=== PATIENT | male | born 1985 | race Caucasian/White ===

== ENCOUNTER 2018-10-26 16:15 | Inpatient (IN) | payer BC ==
[~2018-10-26] VITALS: Ht 182.9 cm; Wt 118.2 kg
[2018-10-26] MEDS ORDERED: normal saline 1000ML IV soln IVB ONE (16:30)
[2018-10-26] MEDS ORDERED: ondansetron/PF 4mg/2ml inj IV ONE (17:00)
[2018-10-26 17:03] LABS: BASOPHILS % (AUTO) 0.1 % (0-1); EOSINOPHILS % (AUTO) 0.6 % (0-6); HEMATOCRIT 48.3 % (42.0-52.0); HEMOGLOBIN 16.4 g/dl (14.0-17.9); LYMPHOCYTES # (AUTO) 0.5 X10'3 (1.1-4.8); LYMPHOCYTES % (AUTO) 7.1 % (21-51); MEAN CORPUSCULAR HEMOGLOBIN 30.3 PG (27.0-31.0); MEAN CORPUSCULAR HGB CONC 33.9 % (33.0-36.5); MEAN CORPUSCULAR VOLUME 89.4 FL (78-98); MEAN PLATELET VOLUME 9.1 FL (7.4-10.4); MONOCYTES # (AUTO) 0.5 X10'3 (0-0.9); MONOCYTES % (AUTO) 6.5 % (2-12); NEUTROPHILS # (AUTO) 6.5 X10'3 (1.8-7.7); NEUTROPHILS % (AUTO) 85.7 % (42-75); PLATELET COUNT 232 X10'3 (140-440); RED CELL DISTRIBUTION WIDTH 13.4 % (11.5-14.5); WHITE BLOOD COUNT 7.6 X10'3 (4.5-11.0)
[2018-10-26 17:13] LABS: ALANINE AMINOTRANSFERASE 494 U/L (12-78); ALKALINE PHOSPHATASE 126 IU/L (46-116); ANION GAP 12 (8-16); ASPARTATE AMINO TRANSFERASE 184 U/L (10-37); BILIRUBIN,TOTAL 9.3 MG/DL (0.1-1.0); BLOOD UREA NITROGEN 12 MG/DL (7-18); BUN/CREATININE RATIO 14.6 (5.4-32.0); CALCIUM 8.9 MG/DL (8.5-10.1); CHLORIDE 102 MMOL/L (99-107); CREATININE 0.82 MG/DL (0.60-1.10); GLUCOSE 105 MG/DL (70-104); SODIUM 140 MMOL/L (135-145); TOTAL CARBON DIOXIDE 25.8 MMOL/L (24-32); eGFR > 90 ML/MIN
[2018-10-26 17:18] LABS: ALBUMIN/GLOBULIN RATIO 1.1 (1.1-1.5); TOTAL PROTEIN 7.5 G/DL (6.4-8.2)
[2018-10-26] MEDS: morphine 4 MG/ML inj SYRINge IV PRN ×4 (17:30→23:07)
[2018-10-26 17:35] LABS: LIPASE 12029 U/L (73-393)
[2018-10-26] MEDS ORDERED: normal saline 1000ml 1,000 ML IV ONE (18:07)
[2018-10-26] MEDS ORDERED: mag hydrox/Alum hydrox/simeth 30ml oral suspension PO PRN (20:30)
[2018-10-26] MEDS ORDERED: haloperidol 5mg tablet PO PRN (20:30)
[2018-10-26] MEDS ORDERED: metoclopramide 5 mg/ml inj IV PRN (20:30)
[2018-10-26] MEDS ORDERED: bisacodyl 10mg suppository rectal RC PRN (20:30)
[2018-10-26] MEDS ORDERED: acetaminophen 325mg tablet PO PRN (20:30)
[2018-10-26] MEDS ORDERED: dextrose 50%-water 50ml dispensing syringe IV PRN (20:30)
[2018-10-26] MEDS ORDERED: HYDROmorphone 1 mg/ml syringe IV PRN (20:30)
[2018-10-26] MEDS ORDERED: magnesium hydroxide 30ml (MOM) UD suspension PO PRN (20:30)
[2018-10-26] MEDS ORDERED: thiamine 100mg/ml 2ml inj. IV ONE (20:30)
[2018-10-26] MEDS ORDERED: LORazepam 2 mg/ml vial IV PRN (20:30)
[2018-10-26] MEDS ORDERED: morphine 2 MG/ML inj. syringe IV PRN (20:30)
[2018-10-26] MEDS ORDERED: HYDROcodone/acetaminophen 10/325mg tab PO PRN (20:30)
[2018-10-26] MEDS ORDERED: haloperidol lactate 5mg/ml inj IM PRN (20:30)
[2018-10-26] MEDS ORDERED: acetaminophen 650mg rectal suppository RC PRN (20:30)
[2018-10-26] MEDS ORDERED: LORazepam 1 MG tablet PO PRN (20:30)
[2018-10-26 20:59] LABS: HEMOGLOBIN A1C 5.4 % (4.5-6.2)
[2018-10-26] MEDS ORDERED: temazepam 15mg capsule PO PRN (21:00)
[2018-10-26 21:02] LABS: PARTIAL THROMBOPLASTIN TIME 27 SECONDS (22-32); PROTHROMBIN TIME 10.6 SECONDS (9.0-12.0)
[2018-10-26] MEDS ORDERED: thiamine inj. 100 MG in normal saline 100ml IV soln 99 ML IV ONE (21:05)
[2018-10-26 21:09] LABS: MAGNESIUM 1.9 MG/DL (1.5-2.4)
[2018-10-26 21:10] LABS: PHOSPHORUS 3.8 MG/DL (2.3-4.5)
[2018-10-26] MEDS: ondansetron/PF 4mg/2ml inj IV PRN (21:14)
[2018-10-26 21:57] LABS: CLARITY,URINE CLEAR (Clear); COLOR,URINE AMBER (Yellow)
[2018-10-26 22:04] LABS: URINE AMPHETAMINE SCREEN NEGATIVE (Neg); URINE BARBITUATE SCREEN NEGATIVE (Neg); URINE BENZODIAZEPINES SCREEN NEGATIVE (Neg); URINE CANNABINOID SCREEN NEGATIVE (Neg); URINE COCAINE SCREEN NEGATIVE (Neg); URINE METHADONE SCREEN NEGATIVE (Neg); URINE OPIATE SCREEN POSITIVE (Neg); URINE PHENCYCLIDINE SCREEN NEGATIVE (Neg)
[2018-10-26 22:09] LABS: UA COLLECTION TYPE URINAL
[2018-10-26 22:12] LABS: BACTERIA,URINE FEW /HPF (Neg); RBC,URINE 0-2 /HPF (0-2); SQUAMOUS EPITHELIAL CELL,UR FEW /LPF (FEW); WBC,URINE 0-4 /HPF (0-4)
[2018-10-26] MEDS: normal saline 1000ml 1,000 ML IV SCH (22:22)
[2018-10-27 00:44] VITALS: BP 126/69
[2018-10-27] MEDS: normal saline 1000ml 1,000 ML IV SCH ×3 (05:27→16:50)
[2018-10-27 06:24] LABS: BASOPHILS % (AUTO) 0.2 % (0-1); EOSINOPHILS % (AUTO) 0.3 % (0-6); HEMATOCRIT 43.4 % (42.0-52.0); HEMOGLOBIN 14.9 g/dl (14.0-17.9); LYMPHOCYTES # (AUTO) 0.4 X10'3 (1.1-4.8); LYMPHOCYTES % (AUTO) 3.1 % (21-51); MEAN CORPUSCULAR HEMOGLOBIN 30.6 PG (27.0-31.0); MEAN CORPUSCULAR HGB CONC 34.2 % (33.0-36.5); MEAN CORPUSCULAR VOLUME 89.2 FL (78-98); MEAN PLATELET VOLUME 9.4 FL (7.4-10.4); MONOCYTES # (AUTO) 0.9 X10'3 (0-0.9); MONOCYTES % (AUTO) 7.3 % (2-12); NEUTROPHILS # (AUTO) 11.1 X10'3 (1.8-7.7); NEUTROPHILS % (AUTO) 89.1 % (42-75); PLATELET COUNT 213 X10'3 (140-440); RED BLOOD COUNT 4.86 X10'6 (4.70-6.10); RED CELL DISTRIBUTION WIDTH 12.9 % (11.5-14.5); WHITE BLOOD COUNT 12.5 X10'3 (4.5-11.0)
[2018-10-27 07:00] VITALS: BP 126/75
[2018-10-27] MEDS ORDERED: sincalide inj 0 MCG in normal saline 50ml IV soln 50 ML IV ONE (07:00)
[2018-10-27] MEDS: pantoprazole 40 MG vial IV SCH ×2 (08:00→19:56)
[2018-10-27] MEDS: docusate sod 100mg capsule PO SCH ×2 (08:00→19:56)
[2018-10-27] MEDS: heparin, porcine 5000 units/ml vial SQ SCH ×2 (08:00→19:56)
[2018-10-27] MEDS: morphine 4 MG/ML inj SYRINge IV PRN ×4 (08:11→21:48)
[2018-10-27] MEDS: ondansetron/PF 4mg/2ml inj IV PRN ×2 (08:11→17:20)
[2018-10-27 09:46] LABS: LIPASE 4598 U/L (73-393)
[2018-10-27 09:47] LABS: ANION GAP 14 (8-16); CHLORIDE 104 MMOL/L (99-107); GLUCOSE 92 MG/DL (70-104); POTASSIUM 3.4 MMOL/L (3.5-5.1); SODIUM 140 MMOL/L (135-145); TOTAL CARBON DIOXIDE 21.6 MMOL/L (24-32)
[2018-10-27 09:48] LABS: ALANINE AMINOTRANSFERASE 343 U/L (12-78); ALBUMIN 3.4 G/DL (3.4-5.0); ALKALINE PHOSPHATASE 112 IU/L (46-116); ASPARTATE AMINO TRANSFERASE 94 U/L (10-37); BILIRUBIN,TOTAL 4.5 MG/DL (0.1-1.0); BLOOD UREA NITROGEN 12 MG/DL (7-18); BUN/CREATININE RATIO 12.1 (5.4-32.0); CALCIUM 8.1 MG/DL (8.5-10.1); CHOL/HDL RATIO 3.7 (0.00-4.99); CHOLESTEROL 207 MG/DL (0-200); CREATININE 0.99 MG/DL (0.60-1.10); HDL CHOLESTEROL 56 MG/DL (35-60); LDL CHOLESTEROL 128 MG/DL (50-100); TOTAL PROTEIN 6.7 G/DL (6.4-8.2); TRIGLYCERIDES 87 MG/DL (20-135); eGFR 87 ML/MIN
[2018-10-27 11:00] VITALS: BP 144/83
[2018-10-27] MEDS ORDERED: magnesium 2GM in 50ml NS 50 ML IV PRN (16:10)
[2018-10-27] MEDS ORDERED: magnesium Cl slow-release 64mg tablet PO PRN (16:10)
[2018-10-27] MEDS ORDERED: potassium Cl 40MEQ/NS 500ml 500 ML IV PRN ×2 (16:10)
[2018-10-27] MEDS ORDERED: magnesium 4gm in 100ml NS 100 ML IV PRN (16:10)
[2018-10-27] MEDS ORDERED: potassium Cl 20 mEq SR tablet PO PRN ×2 (16:10)
[2018-10-27 19:00] VITALS: BP 137/64
[2018-10-27] MEDS ORDERED: piperacillin/tazo 3.375gm/50ml 50 ML IV ONE (20:00)
[2018-10-27 20:08] VITALS: BP 127/74
[2018-10-28] VITALS: BP 126/63
[2018-10-28] MEDS: normal saline 1000ml 1,000 ML IV SCH ×2 (00:35→14:48)
[2018-10-28] MEDS: piperacillin/tazo 3.375gm/50ml 50 ML IV SCH ×4 (00:37→23:17)
[2018-10-28] MEDS: ondansetron/PF 4mg/2ml inj IV PRN ×3 (04:13→21:41)
[2018-10-28] MEDS: morphine 4 MG/ML inj SYRINge IV PRN ×5 (04:14→21:41)
[2018-10-28 06:14] LABS: HBSAG SCREEN Negative (Negative); HEP A AB, IGM Negative (Negative); HEP B CORE AB, IGM Negative (Negative); HEPATITIS C ANTIBODY <0.1 s/co ratio (0.0-0.9)
[2018-10-28 06:35] LABS: BASOPHILS # (AUTO) 0.1 X10'3 (0-0.2); BASOPHILS % (AUTO) 0.7 % (0-1); EOSINOPHILS % (AUTO) 0 % (0-6); HEMOGLOBIN 13.5 g/dl (14.0-17.9); LYMPHOCYTES # (AUTO) 0.5 X10'3 (1.1-4.8); LYMPHOCYTES % (AUTO) 3.9 % (21-51); MEAN CORPUSCULAR HEMOGLOBIN 30.4 PG (27.0-31.0); MEAN CORPUSCULAR HGB CONC 33.9 % (33.0-36.5); MEAN CORPUSCULAR VOLUME 89.6 FL (78-98); MEAN PLATELET VOLUME 9.5 FL (7.4-10.4); MONOCYTES # (AUTO) 0.9 X10'3 (0-0.9); MONOCYTES % (AUTO) 7.9 % (2-12); NEUTROPHILS # (AUTO) 10.2 X10'3 (1.8-7.7); NEUTROPHILS % (AUTO) 87.5 % (42-75); PLATELET COUNT 185 X10'3 (140-440); RED BLOOD COUNT 4.46 X10'6 (4.70-6.10); WHITE BLOOD COUNT 11.6 X10'3 (4.5-11.0)
[2018-10-28 07:04] LABS: ALANINE AMINOTRANSFERASE 200 U/L (12-78); ALBUMIN 2.8 G/DL (3.4-5.0); ALKALINE PHOSPHATASE 90 IU/L (46-116); ANION GAP 8 (8-16); ASPARTATE AMINO TRANSFERASE 36 U/L (10-37); BILIRUBIN,TOTAL 4.5 MG/DL (0.1-1.0); BLOOD UREA NITROGEN 9 MG/DL (7-18); BUN/CREATININE RATIO 8.9 (5.4-32.0); CALCIUM 7.8 MG/DL (8.5-10.1); CHLORIDE 102 MMOL/L (99-107); CREATININE 1.01 MG/DL (0.60-1.10); GLUCOSE 114 MG/DL (70-104); POTASSIUM 3.6 MMOL/L (3.5-5.1); SODIUM 138 MMOL/L (135-145); TOTAL CARBON DIOXIDE 27.6 MMOL/L (24-32); eGFR 85 ML/MIN
[2018-10-28 07:13] LABS: ALBUMIN/GLOBULIN RATIO 0.8 (1.1-1.5); TOTAL PROTEIN 6.3 G/DL (6.4-8.2)
[2018-10-28 07:46] LABS: LIPASE 1426 U/L (73-393)
[2018-10-28] MEDS: pantoprazole 40 MG vial IV SCH ×2 (07:48→19:42)
[2018-10-28] MEDS: docusate sod 100mg capsule PO SCH ×2 (07:48→19:42)
[2018-10-28] MEDS: heparin, porcine 5000 units/ml vial SQ SCH ×2 (08:00→19:42)
[2018-10-28 08:07] VITALS: BP 114/65
[2018-10-28 11:00] VITALS: BP 128/60
[2018-10-28 18:00] VITALS: BP 126/70
[2018-10-28 22:51] VITALS: BP 126/70
[2018-10-29] VITALS (19 sets, daily range): BP systolic 100–141; BP diastolic 53–86
[2018-10-29] MEDS: morphine 4 MG/ML inj SYRINge IV PRN ×2 (01:46→05:48)
[2018-10-29] MEDS: normal saline 1000ml 1,000 ML IV SCH ×2 (03:10→16:19)
[2018-10-29 05:44] LABS: BASOPHILS % (AUTO) 0.1 % (0-1); EOSINOPHILS # (AUTO) 0.1 X10'3 (0-0.9); EOSINOPHILS % (AUTO) 1.8 % (0-6); HEMATOCRIT 37.1 % (42.0-52.0); HEMOGLOBIN 12.6 g/dl (14.0-17.9); LYMPHOCYTES # (AUTO) 0.7 X10'3 (1.1-4.8); LYMPHOCYTES % (AUTO) 8.6 % (21-51); MEAN CORPUSCULAR HEMOGLOBIN 30.6 PG (27.0-31.0); MEAN CORPUSCULAR VOLUME 90.1 FL (78-98); MEAN PLATELET VOLUME 9.5 FL (7.4-10.4); MONOCYTES # (AUTO) 0.7 X10'3 (0-0.9); MONOCYTES % (AUTO) 8.9 % (2-12); NEUTROPHILS # (AUTO) 6.8 X10'3 (1.8-7.7); NEUTROPHILS % (AUTO) 80.6 % (42-75); PLATELET COUNT 186 X10'3 (140-440); RED BLOOD COUNT 4.12 X10'6 (4.70-6.10); RED CELL DISTRIBUTION WIDTH 12.7 % (11.5-14.5); WHITE BLOOD COUNT 8.4 X10'3 (4.5-11.0)
[2018-10-29 05:45] LABS: ALANINE AMINOTRANSFERASE 131 U/L (12-78); ALBUMIN 2.6 G/DL (3.4-5.0); ALBUMIN/GLOBULIN RATIO 0.7 (1.1-1.5); ALKALINE PHOSPHATASE 77 IU/L (46-116); ANION GAP 10 (8-16); ASPARTATE AMINO TRANSFERASE 18 U/L (10-37); BILIRUBIN,TOTAL 2.9 MG/DL (0.1-1.0); BLOOD UREA NITROGEN 12 MG/DL (7-18); BUN/CREATININE RATIO 14.6 (5.4-32.0); CALCIUM 8.1 MG/DL (8.5-10.1); CHLORIDE 102 MMOL/L (99-107); CREATININE 0.82 MG/DL (0.60-1.10); GLUCOSE 108 MG/DL (70-104); POTASSIUM 3.6 MMOL/L (3.5-5.1); SODIUM 138 MMOL/L (135-145); TOTAL CARBON DIOXIDE 25.6 MMOL/L (24-32); TOTAL PROTEIN 6.5 G/DL (6.4-8.2); eGFR > 90 ML/MIN
[2018-10-29] MEDS: ondansetron/PF 4mg/2ml inj IV PRN (05:51)
[2018-10-29] MEDS ORDERED: BUPIVAcaine/PF 2.5mg/ml (0.25%) 10ml vial ONE (06:37)
[2018-10-29] MEDS: docusate sod 100mg capsule PO SCH ×2 (06:41→20:06)
[2018-10-29] MEDS: heparin, porcine 5000 units/ml vial SQ SCH ×2 (06:41→20:06)
[2018-10-29] MEDS: piperacillin/tazo 3.375gm/50ml 50 ML IV SCH ×3 (07:29→23:24)
[2018-10-29] MEDS: pantoprazole 40 MG vial IV SCH ×2 (07:29→20:06)
[2018-10-29] MEDS ORDERED: propofol 10mg/ml 20ml vial IV ONE (10:55)
[2018-10-29] MEDS ORDERED: dexamethasone sod phosphate 10mg/ml inj ONE (10:55)
[2018-10-29] MEDS ORDERED: neostigmine methylsulfate 1 MG/ML 10ml vial ONE (10:55)
[2018-10-29] MEDS ORDERED: succinylcholine 20mg/ml inj IV ONE (10:55)
[2018-10-29] MEDS ORDERED: ondansetron/PF 4mg/2ml inj ONE (10:55)
[2018-10-29] MEDS ORDERED: rocuronium 10mg/ml inj IV ONE (10:55)
[2018-10-29] MEDS ORDERED: ceFOXitin 2 GM ADDvantage bag 100 ML IV ONE (10:55)
[2018-10-29] MEDS ORDERED: sevoflurane 250ml liquid IH ONE (10:55)
[2018-10-29] MEDS ORDERED: LIDOcaine 1%/PF 5ML 10 MG/ML VIAL ONE (10:55)
[2018-10-29] MEDS ORDERED: glycopyrrolate 0.2mg/ml inj ONE (10:55)
[2018-10-29] MEDS ORDERED: midazolam 2 mg/2 ml injection ONE (10:57)
[2018-10-29] MEDS ORDERED: fentaNYL /PF 50mcg/ml 5ml ampule ONE (10:57)
[2018-10-29] MEDS ORDERED: morphine 4 MG/ML inj SYRINge IV PRN ×2 (11:45)
[2018-10-29] MEDS ORDERED: meperidine/PF 25mg/ml syringe IV PRN ×2 (11:45)
[2018-10-29] MEDS ORDERED: ondansetron/PF 4mg/2ml inj IV PRN ×2 (11:45→12:55)
[2018-10-29] MEDS ORDERED: ringers solution, lacted 1,000 ML IV SCH (11:45)
[2018-10-29] MEDS ORDERED: proCHLORperazine 10 MG/2 ml inj IV PRN (11:45)
[2018-10-29] MEDS ORDERED: sugammadex 200mg/2ml injection IV ONE (12:27)
[2018-10-29] MEDS ORDERED: ipratropium/albuterol 3ml nebule NEB PRN (12:40)
[2018-10-29] MEDS: meperidine/PF 25mg/ml syringe IV PRN ×3 (12:43→13:54)
[2018-10-29] MEDS ORDERED: HYDROcodone/acetaminophen 10/325mg tab PO PRN (12:55)
[2018-10-29] MEDS: ketorolac trometh. 30mg/ml inj. IV PRN ×2 (15:13→21:48)
[2018-10-30 06:53] LABS: BASOPHILS % (AUTO) 0.2 % (0-1); EOSINOPHILS # (AUTO) 0.1 X10'3 (0-0.9); EOSINOPHILS % (AUTO) 0.9 % (0-6); HEMATOCRIT 36.3 % (42.0-52.0); HEMOGLOBIN 12.2 g/dl (14.0-17.9); LYMPHOCYTES # (AUTO) 0.6 X10'3 (1.1-4.8); LYMPHOCYTES % (AUTO) 9.1 % (21-51); MEAN CORPUSCULAR HEMOGLOBIN 30.6 PG (27.0-31.0); MEAN CORPUSCULAR HGB CONC 33.7 % (33.0-36.5); MEAN CORPUSCULAR VOLUME 90.9 FL (78-98); MEAN PLATELET VOLUME 9.2 FL (7.4-10.4); MONOCYTES # (AUTO) 0.6 X10'3 (0-0.9); MONOCYTES % (AUTO) 8.8 % (2-12); NEUTROPHILS # (AUTO) 5.1 X10'3 (1.8-7.7); PLATELET COUNT 208 X10'3 (140-440); RED BLOOD COUNT 3.99 X10'6 (4.70-6.10); RED CELL DISTRIBUTION WIDTH 12.8 % (11.5-14.5); WHITE BLOOD COUNT 6.3 X10'3 (4.5-11.0)
[2018-10-30 06:59] LABS: ALANINE AMINOTRANSFERASE 102 U/L (12-78); ALBUMIN 2.4 G/DL (3.4-5.0); ALBUMIN/GLOBULIN RATIO 0.6 (1.1-1.5); ALKALINE PHOSPHATASE 62 IU/L (46-116); ANION GAP 8 (8-16); ASPARTATE AMINO TRANSFERASE 25 U/L (10-37); BILIRUBIN,TOTAL 1.3 MG/DL (0.1-1.0); BLOOD UREA NITROGEN 16 MG/DL (7-18); BUN/CREATININE RATIO 18.6 (5.4-32.0); CALCIUM 7.9 MG/DL (8.5-10.1); CHLORIDE 104 MMOL/L (99-107); CREATININE 0.86 MG/DL (0.60-1.10); GLUCOSE 123 MG/DL (70-104); POTASSIUM 3.9 MMOL/L (3.5-5.1); SODIUM 139 MMOL/L (135-145); TOTAL PROTEIN 6.4 G/DL (6.4-8.2); eGFR > 90 ML/MIN
[2018-10-30 07:00] VITALS: BP 113/71
[2018-10-30] MEDS: normal saline 1000ml 1,000 ML IV SCH (08:02)
[2018-10-30] MEDS: docusate sod 100mg capsule PO SCH (08:03)
[2018-10-30] MEDS: pantoprazole 40 MG vial IV SCH (08:03)
[2018-10-30] MEDS: piperacillin/tazo 3.375gm/50ml 50 ML IV SCH (08:04)
[2018-10-30] MEDS: heparin, porcine 5000 units/ml vial SQ SCH (08:04)
[2018-10-30] MEDS: ketorolac trometh. 30mg/ml inj. IV PRN (08:14)
[2018-10-30] MEDS ORDERED: NO HOME MEDS (09:42)
[2018-10-30] MEDS ORDERED: PER10325T PO (12:21)
== END 2018-10-30 13:30 | disposition home or self-care (01) | DRG 417 ==
LOC: ER 16:16 → ED HOLD 20:29 → SUR 3N 22:00 → PAS IN 10-29 10:10 → SUR 3N 10-29 13:31
PROVIDERS: ADMIT Family Medicine; ATTEND Internal Medicine
PROC: 0WQF0ZZ Repair Abdominal Wall, Open Approach (ICD-10-PCS; 2018-10-29)
PROC: 0FT44ZZ Resection of Gallbladder, Percutaneous Endoscopic Approach (ICD-10-PCS; principal; 2018-10-29 10:55)
DX: K80.20 Calculus of gallbladder without cholecystitis without obstruction (principal); K85.10 Biliary acute pancreatitis without necrosis or infection; K56.7 Ileus, unspecified; K42.9 Umbilical hernia without obstruction or gangrene; K70.10 Alcoholic hepatitis without ascites; F10.20 Alcohol dependence, uncomplicated; Y90.9 Presence of alcohol in blood, level not specified; K66.0 Peritoneal adhesions (postprocedural) (postinfection); I10 Essential (primary) hypertension; E80.6 Other disorders of bilirubin metabolism; K82.8 Other specified diseases of gallbladder; Z88.0 Allergy status to penicillin; Z83.3 Family history of diabetes mellitus
CPT/HCPCS: 96361; 96374; 99285; Z7506; 36415; 74181; 80053; 80061; 80074; 80305; 81001; 82948; 83036; 83605; 83690; 83735; 84100; 84443; 85025; 85610; 85730; 87040; 87070; 87088; 94640; 94760; A7000; C9113; C9399; G0378; J0330; J0690; J0694; J1100; J1644; J1885; J2001; J2175; J2250; J2270; J2405; J2543; J2704; J2710; J2765; J3010; J3411; J3490; J7030; J7120